=== PATIENT | female | born 1990 | race Caucasian/White ===

== ENCOUNTER 2017-10-04 11:49 | Inpatient (IN) | payer BC ==
[2017-10-04] MEDS ORDERED: CARBOPROST 250 MCG/ML SOL IM PRN (12:24)
[2017-10-04] MEDS ORDERED: SODIUM CHLORIDE 0.9% FLUSH 10 ML SOL IV PRN (12:24)
[2017-10-04] MEDS ORDERED: MEPIVACAINE HCL 1% MPF 30 ML/VIAL SOL INFIL PRN (12:24)
[2017-10-04] MEDS ORDERED: FENTANYL 100MCG/2ML SOL IV PRN (12:24)
[2017-10-04] MEDS ORDERED: LACTATED RINGERS 1,000 ML IV PRN (12:24)
[2017-10-04] MEDS ORDERED: METHYLERGONOVINE MALEATE 0.2 MG/ML SOL IM PRN (12:24)
[2017-10-04] MEDS ORDERED: OXYTOCIN 10000 MU/ML SOL IM PRN (12:24)
[2017-10-04] MEDS: SODIUM CHLORIDE 0.9% FLUSH 10 ML SOL IV SCH (15:05)
[2017-10-04] MEDS ORDERED: ONDANSETRON HCL 4 MG/2 ML SOL IV PRN (17:49)
[2017-10-04] MEDS ORDERED: SODIUM CHLORIDE 0.9% 500 ML 500 ML IV ONE (20:00)
[2017-10-05] MEDS ORDERED: SODIUM CHLORIDE 0.9% 500 ML 500 ML IV ONE (02:05)
[2017-10-05] MEDS ORDERED: APAP/HYDROCODONE 325/5 TAB PO PRN (03:25)
[2017-10-05] MEDS ORDERED: BISACODYL 10 MG SUP PR PRN (03:25)
[2017-10-05] MEDS ORDERED: BENZOCAINE/MENTHOL 1 SPR TOP PRN (03:25)
[2017-10-05] MEDS ORDERED: FLEET ENEMA PR PRN (03:25)
[2017-10-05] MEDS ORDERED: TEMAZEPAM 15MG 15 MG CAP PO PRN (03:25)
[2017-10-05] MEDS ORDERED: METHYLERGONOVINE MALEATE 0.2 MG TAB PO PRN (03:25)
[2017-10-05] MEDS ORDERED: IBUPROFEN 600 MG TAB ONE (04:19)
[2017-10-05] MEDS: IBUPROFEN 600 MG TAB PO PRN ×3 (04:19→19:15)
[2017-10-05] MEDS: SODIUM CHLORIDE 0.9% FLUSH 10 ML SOL IV SCH ×3 (06:28→23:16)
[2017-10-05] MEDS: DOCUSATE SODIUM 100 MG SGL PO SCH ×2 (09:14→21:02)
[2017-10-05] MEDS: WITCH HAZEL 1 EA PAD TOP PRN ×2 (20:03→21:04)
[2017-10-06] MEDS: IBUPROFEN 600 MG TAB PO PRN ×2 (03:27→12:40)
[2017-10-06] MEDS: DOCUSATE SODIUM 100 MG SGL PO SCH ×2 (09:10→21:35)
[2017-10-06 09:15] VITALS: O2SAT 98
[2017-10-06 21:58] VITALS: RESP 12
[2017-10-07] MEDS: IBUPROFEN 600 MG TAB PO PRN (05:30)
[2017-10-07 06:47] VITALS: BP 115/71; PULSE 61; TEMP 97.7
[2017-10-07] MEDS: DOCUSATE SODIUM 100 MG SGL PO SCH (09:12)
== END 2017-10-07 11:10 | disposition home or self-care (01) | DRG 560 ==
LOC: OB 11:49 → OBSVTOIN 11:49
PROVIDERS: ADMIT Family Medicine; ATTEND Family Medicine
PROC: 10E0XZZ Delivery of Products of Conception, External Approach (ICD-10-PCS; principal; 2017-10-04)
PROC: 6A550ZT Pheresis of Cord Blood Stem Cells, Single (ICD-10-PCS; 2017-10-04)
PROC: 0KQM0ZZ Repair Perineum Muscle, Open Approach (ICD-10-PCS; 2017-10-04)
DX: O80 Encounter for full-term uncomplicated delivery (principal); Z37.0 Single live birth; O14.94 Unspecified pre-eclampsia, complicating childbirth; Z3A.39 39 weeks gestation of pregnancy
CPT/HCPCS: 36415; 59025; 85018; J0670; J2590; A9270-GY